=== PATIENT | female | born 1980 | race Caucasian/White ===

== ENCOUNTER 2018-03-29 07:12 | Emergency (ER) | payer OTHER | END 2018-03-29 08:10 | disposition home or self-care (01) | LOC: FTE 07:12 | DX: J03.90 Acute tonsillitis, unspecified (principal); J40 Bronchitis, not specified as acute or chronic; E10.9 Type 1 diabetes mellitus without complications | CPT/HCPCS: 99283 ==

== ENCOUNTER 2018-04-18 17:04 | Emergency (ER) | payer OTHER, MEDICAID ==
[2018-04-18] MEDS: morphine 4 MG/ML VIAL IV ×2 (18:00→18:06)
[2018-04-18] MEDS: METOCLOPRAMIDE 10 MG INJ IV (18:00)
[2018-04-18] MEDS: SOD CHLORIDE 0.9% 1,000 ML IV (18:00)
[2018-04-18 18:07] LABS: ADD MAN DIFF? NO
[2018-04-18 18:10] LABS: WHITE BLOOD COUNT 8.5 10^3/ul (4.8-10.8)
[2018-04-18 18:10] LABS: BASOPHILS % 0.5 % (0.0-2.0); EOSINOPHILS % 0.4 % (0.0-7.0); HEMATOCRIT 38.3 % (37.0-47.0); HEMOGLOBIN 12.6 g/dl (12.0-16.0); LYMPHOCYTES # 2.7 10^3/ul (0.8-2.9); LYMPHOCYTES % 31.3 % (15.0-51.0); MEAN CORPUSCULAR HEMOGLOBIN 27.3 pg (29.0-33.0); MEAN CORPUSCULAR HGB CONC 32.9 g/dl (32.0-37.0); MEAN CORPUSCULAR VOLUME 82.9 fl (82.0-101.0); MEAN PLATELET VOLUME 11.3 fl (7.4-10.4); MONOCYTE # 0.6 10^3/ul (0.3-0.9); MONOCYTES % 6.5 % (0.0-11.0); NEUTROPHIL # 5.2 10^3/ul (1.6-7.5); NEUTROPHILS % 60.8 % (39.0-77.0); PLATELET COUNT 180 10^3/UL (140-415); RED BLOOD COUNT 4.62 10^6/ul (4.20-5.40); RED CELL DISTRIBUTION WIDTH 13.4 % (11.5-14.5)
[2018-04-18 18:27] LABS: ALANINE AMINOTRANSFERASE 15 IU/L (13-69); ALBUMIN 4.4 g/dl (3.3-4.9); ALBUMIN/GLOBULIN RATIO 1.46; ALKALINE PHOSPHATASE 93 IU/L (42-121); ANION GAP 11 (5-13); ASPARTATE AMINO TRANSFERASE 28 IU/L (15-46); BILIRUBIN,INDIRECT 0.2 mg/dl (0-1.1); BILIRUBIN,TOTAL 0.2 mg/dl (0.2-1.3); BLOOD UREA NITROGEN 20 mg/dl (7-20); CALCIUM 9.5 mg/dl (8.4-10.2); CARBON DIOXIDE 30 mmol/L (21-31); CHLORIDE 98 mmol/L (97-110); CREATININE 0.32 mg/dl (0.44-1.00); Estimated GFR > 60 mL/min (>60); GLUCOSE 184 mg/dl (70-220); POTASSIUM 4.5 mmol/L (3.5-5.1); SODIUM 139 mmol/L (135-144); TOTAL PROTEIN 7.4 g/dl (6.1-8.1)
[2018-04-18 18:29] LABS: PROTIME 12.2 Sec (11.9-14.9)
[2018-04-18 18:30] LABS: PARTIAL THROMBOPLASTIN TIME 26.3 Sec (23.0-35.0)
[2018-04-18] MEDS: DIPHENHYDRAMINE 50 MG INJ IV (18:36)
== END 2018-04-18 19:27 | disposition home or self-care (01) ==
LOC: FTE 17:04
DX: R51 Headache (principal); E11.9 Type 2 diabetes mellitus without complications; Z79.4 Long term (current) use of insulin
CPT/HCPCS: 36415; 70450; 80053; 85025; 85610; 85730; 96361; 96374; 96375; 99285-25

== ENCOUNTER 2018-04-23 03:20 | Emergency (ER) | payer OTHER ==
[2018-04-23 04:11] LABS: URINE BLOOD (Dip) POC Trace-intact (NEGATIVE); URINE KETONES (Dip) POC Negative (NEGATIVE); URINE LEUKOCYTE EST (Dip) POC Negative (NEGATIVE); URINE NITRITE (Dip) POC Positive (NEGATIVE); URINE TOTAL PROTEIN POC Negative (NEGATIVE)
[2018-04-23] MEDS: SOD CHLORIDE 0.9% 1,000 ML IV (04:26)
[2018-04-23] MEDS: KETOROLAC 30 MG INJ IV (04:34)
[2018-04-23] MEDS: CIPROFLOXACIN 500 MG TAB PO (04:39)
[2018-04-23] MEDS: ALPRAZOLAM 0.25 MG TAB PO (04:39)
[2018-04-23] MEDS: HYDROCODONE/APAP (10/325) TAB PO (05:23)
[2018-04-23] MEDS: ACETAMINOPHEN 325 MG TAB PO (05:39)
[2018-04-23] MEDS: IBUPROFEN 600 MG TAB PO (05:40)
[2018-04-23] MEDS: ONDANSETRON (ODT) 4 MG TAB ODT (07:06)
[2018-04-23] MEDS: LORAZEPAM 1 MG TAB PO (09:15)
== END 2018-04-23 09:37 | disposition home or self-care (01) ==
LOC: E/R 03:20
DX: N39.0 Urinary tract infection, site not specified (principal); R40.2142 Coma scale, eyes open, spontaneous, at arrival to emergency department; R40.2362 Coma scale, best motor response, obeys commands, at arrival to emergency department; R40.2252 Coma scale, best verbal response, oriented, at arrival to emergency department; E11.9 Type 2 diabetes mellitus without complications; F41.9 Anxiety disorder, unspecified; R10.9 Unspecified abdominal pain
CPT/HCPCS: 81003; 81025; 82962; 87086; 96361; 96374; 99284-25

== ENCOUNTER 2018-04-25 06:44 | Inpatient (IN) | payer OTHER ==
[2018-04-25 07:30] LABS: ADD MAN DIFF? NO
[2018-04-25] MEDS: ACETAMINOPHEN 325 MG TAB PO ×2 (07:30→17:00)
[2018-04-25] MEDS: SODIUM CHLORIDE 0.9% 1L BAG IV* (07:31)
[2018-04-25 07:33] LABS: WHITE BLOOD COUNT 6.2 10^3/ul (4.8-10.8)
[2018-04-25 07:33] LABS: BASOPHILS % 0.3 % (0.0-2.0); HEMATOCRIT 40.6 % (37.0-47.0); HEMOGLOBIN 13.6 g/dl (12.0-16.0); LYMPHOCYTES # 1.1 10^3/ul (0.8-2.9); LYMPHOCYTES % 16.9 % (15.0-51.0); MEAN CORPUSCULAR HEMOGLOBIN 27.3 pg (29.0-33.0); MEAN CORPUSCULAR HGB CONC 33.5 g/dl (32.0-37.0); MEAN CORPUSCULAR VOLUME 81.4 fl (82.0-101.0); MEAN PLATELET VOLUME 10.7 fl (7.4-10.4); MONOCYTE # 0.3 10^3/ul (0.3-0.9); MONOCYTES % 4.5 % (0.0-11.0); NEUTROPHIL # 4.8 10^3/ul (1.6-7.5); PLATELET COUNT 151 10^3/UL (140-415); RED BLOOD COUNT 4.99 10^6/ul (4.20-5.40)
[2018-04-25 07:35] LABS: ADD UMIC YES; UR ASCORBIC ACID NEGATIVE (NEGATIVE); UR BACTERIA MODERATE /HPF (NONE SEEN); UR BILIRUBIN (Dip) NEGATIVE (NEGATIVE); UR BLOOD (Dip) 3+ mg/dL (NEGATIVE); UR CLARITY CLOUDY (CLEAR); UR COLOR YELLOW (YELLOW); UR GLUCOSE (Dip) 3+ mg/dL (NEGATIVE); UR KETONES (Dip) 2+ mg/dL (NEGATIVE); UR LEUKOCYTE ESTERASE (Dip) 3+ Leu/ul (NEGATIVE); UR MUCUS FEW /HPF (NONE SEEN); UR NITRITE (Dip) NEGATIVE (NEGATIVE); UR RBC 85 /HPF (0-5); UR SPECIFIC GRAVITY (Dip) 1.033 (1.003-1.030); UR SQUAMOUS EPITHELIAL CELL FEW /HPF (FEW); UR TOTAL PROTEIN (Dip) 1+ mg/dl (NEGATIVE); UR UROBILINOGEN (Dip) NEGATIVE (NEGATIVE); UR WBC > 182 /HPF (0-5)
[2018-04-25] MEDS: KETOROLAC 30 MG INJ IV (07:36)
[2018-04-25] MEDS: AZTREONAM 1 GM/NS (PMX) 50 ML IVPB (07:49)
[2018-04-25 07:52] LABS: INR 0.99; PROTIME 13.2 Sec (11.9-14.9)
[2018-04-25 07:53] LABS: PARTIAL THROMBOPLASTIN TIME 30.5 Sec (23.0-35.0)
[2018-04-25 08:03] LABS: TROPONIN-I < 0.012 ng/ml (0.000-0.120)
[2018-04-25] MEDS: ONDANSETRON 4 MG INJ IV (08:04)
[2018-04-25] MEDS: HYDROmorphONE 2 MG/ML SYG IV (08:04)
[2018-04-25] MEDS: VANCOMYCIN 1 GM (PMX) 250 ML IVPB (08:32)
[2018-04-25 08:35] LABS: ANION GAP 14 (5-13); BLOOD UREA NITROGEN 9 mg/dl (7-20); CALCIUM 9.1 mg/dl (8.4-10.2); CARBON DIOXIDE 24 mmol/L (21-31); CHLORIDE 101 mmol/L (97-110); CREATININE 0.36 mg/dl (0.44-1.00); Estimated GFR > 60 mL/min (>60); GLUCOSE 317 mg/dl (70-220); POTASSIUM 3.9 mmol/L (3.5-5.1); SODIUM 139 mmol/L (135-144)
[2018-04-25] MEDS ORDERED: ONDANSETRON 4 MG INJ IV (09:30)
[2018-04-25] MEDS ORDERED: GLUCOSE GEL 15 GRAM TUBE PO ×4 (09:30→11:00)
[2018-04-25] MEDS ORDERED: ACETAMINOPHEN 325 MG TAB PO (09:30)
[2018-04-25] MEDS ORDERED: GLUCAGON 1 MG INJ IM ×2 (09:30→11:00)
[2018-04-25] MEDS ORDERED: DEXTROSE 50% 50 ML SYRINGE IV ×4 (09:30→11:00)
[2018-04-25] MEDS ORDERED: GLUCOSE GEL 15 GRAM TUBE BUCCAL ×2 (09:30→11:00)
[2018-04-25] MEDS ORDERED: NACL 0.9% 3 ML SYG IV (10:30)
[2018-04-25] MEDS ORDERED: morphine 2 MG INJ IV (10:30)
[2018-04-25] MEDS: SOD CHLORIDE 0.9% 1,000 ML IV ×2 (11:32→18:29)
[2018-04-25] MEDS: SOD CHLORIDE 0.9% 500 ML IV (11:36)
[2018-04-25] MEDS: ONDANSETRON 4 MG TAB PO ×2 (11:41→17:56)
[2018-04-25 11:46] LABS: LACTIC ACID 0.8 mmol/L (0.5-2.0)
[2018-04-25 12:21] LABS: HEMOGLOBIN A1C 11.9 % (0-5.9)
[2018-04-25] MEDS: INSULIN ASPART [NOVOLOG] 3 ML PEN SC ×5 (12:39→20:19)
[2018-04-25] MEDS: MEROPENEM 1 GM/50ML(PMX) 50 ML IVPB ×2 (12:39→21:35)
[2018-04-25] MEDS: INSULIN GLARGINE [LANTus] (100 UNITS/ML) SYG SC (12:43)
[2018-04-25] MEDS: LORAZEPAM 2 MG INJ IV (13:13)
[2018-04-25] MEDS: HYDROCODONE/APAP (5/325) TAB PO (21:37)
[2018-04-26] MEDS: SOD CHLORIDE 0.9% 1,000 ML IV ×4 (00:06→23:05)
[2018-04-26] MEDS: ONDANSETRON 4 MG TAB PO ×2 (00:06→10:05)
[2018-04-26] MEDS: LORAZEPAM 2 MG INJ IV (00:07)
[2018-04-26] MEDS: ACCU-CHEK XX (02:00)
[2018-04-26] MEDS: MEROPENEM 1 GM/50ML(PMX) 50 ML IVPB ×3 (06:01→21:58)
[2018-04-26 06:47] LABS: ADD MAN DIFF? NO
[2018-04-26 06:52] LABS: WHITE BLOOD COUNT 5.7 10^3/ul (4.8-10.8)
[2018-04-26 06:52] LABS: BASOPHILS % 0.2 % (0.0-2.0); HEMATOCRIT 33.7 % (37.0-47.0); HEMOGLOBIN 11.2 g/dl (12.0-16.0); LYMPHOCYTES # 1.1 10^3/ul (0.8-2.9); LYMPHOCYTES % 19.7 % (15.0-51.0); MEAN CORPUSCULAR HEMOGLOBIN 26.9 pg (29.0-33.0); MEAN CORPUSCULAR HGB CONC 33.2 g/dl (32.0-37.0); MEAN CORPUSCULAR VOLUME 80.8 fl (82.0-101.0); MONOCYTE # 0.5 10^3/ul (0.3-0.9); MONOCYTES % 7.9 % (0.0-11.0); NEUTROPHIL # 4.1 10^3/ul (1.6-7.5); NEUTROPHILS % 71.9 % (39.0-77.0); PLATELET COUNT 127 10^3/UL (140-415); RED BLOOD COUNT 4.17 10^6/ul (4.20-5.40); RED CELL DISTRIBUTION WIDTH 13.1 % (11.5-14.5)
[2018-04-26 07:11] LABS: ALANINE AMINOTRANSFERASE 268 IU/L (13-69); ALBUMIN 2.8 g/dl (3.3-4.9); ALBUMIN/GLOBULIN RATIO 1.03; ALKALINE PHOSPHATASE 251 IU/L (42-121); ANION GAP 7 (5-13); ASPARTATE AMINO TRANSFERASE 68 IU/L (15-46); BILIRUBIN,INDIRECT 0.2 mg/dl (0-1.1); BILIRUBIN,TOTAL 0.2 mg/dl (0.2-1.3); BLOOD UREA NITROGEN 4 mg/dl (7-20); CALCIUM 7.9 mg/dl (8.4-10.2); CARBON DIOXIDE 26 mmol/L (21-31); CHLORIDE 103 mmol/L (97-110); CREATININE 0.35 mg/dl (0.44-1.00); Estimated GFR > 60 mL/min (>60); GLUCOSE 151 mg/dl (70-220); MAGNESIUM 1.6 mg/dl (1.7-2.5); PHOSPHORUS 2.3 mg/dl (2.5-4.9); POTASSIUM 3.1 mmol/L (3.5-5.1); SODIUM 136 mmol/L (135-144); TOTAL PROTEIN 5.5 g/dl (6.1-8.1)
[2018-04-26] MEDS: INSULIN ASPART [NOVOLOG] 3 ML PEN SC ×7 (08:00→20:47)
[2018-04-26] MEDS: INSULIN GLARGINE [LANTus] (100 UNITS/ML) SYG SC (08:20)
[2018-04-26] MEDS: HYDROCODONE/APAP (5/325) TAB PO ×2 (10:06→20:59)
[2018-04-26 12:52] LABS: HAAIG REFLEX REFLEX FILED
[2018-04-26] MEDS: MAGNESIUM SULFATE 2 GM/50 ML 50 ML IVPB (13:05)
[2018-04-26] MEDS: IBUPROFEN 400 MG TAB PO ×3 (13:22→23:06)
[2018-04-26 13:30] LABS: HEPATITIS B SURFACE ANTIGEN NEGATIVE (NEGATIVE)
[2018-04-26 13:31] LABS: LIPASE < 10 U/L (23-300)
[2018-04-26] MEDS: SUMATRIPTAN 25 MG TAB PO (13:39)
[2018-04-26 13:48] LABS: HEPATITIS B CORE ANTIBODY NEGATIVE (NEGATIVE); HEPATITIS C VIRAL ANTIBODY NEGATIVE (NEGATIVE)
[2018-04-26] MEDS: POTASSIUM PHOSPHATE 15 MM in SOD CHLORIDE 0.9% 250 ML IVPB (15:14)
[2018-04-27] MEDS: ACCU-CHEK XX (02:00)
[2018-04-27] MEDS: IBUPROFEN 400 MG TAB PO ×3 (05:48→18:04)
[2018-04-27] MEDS: MEROPENEM 1 GM/50ML(PMX) 50 ML IVPB ×3 (05:48→21:35)
[2018-04-27 06:03] LABS: ADD MAN DIFF? NO
[2018-04-27 06:23] LABS: BASOPHILS % 0.4 % (0.0-2.0); EOSINOPHILS % 0.4 % (0.0-7.0); HEMATOCRIT 31.5 % (37.0-47.0); HEMOGLOBIN 10.5 g/dl (12.0-16.0); LYMPHOCYTES # 1.8 10^3/ul (0.8-2.9); LYMPHOCYTES % 36.7 % (15.0-51.0); MEAN CORPUSCULAR HEMOGLOBIN 27.1 pg (29.0-33.0); MEAN CORPUSCULAR HGB CONC 33.3 g/dl (32.0-37.0); MEAN CORPUSCULAR VOLUME 81.4 fl (82.0-101.0); MEAN PLATELET VOLUME 10.8 fl (7.4-10.4); MONOCYTE # 0.5 10^3/ul (0.3-0.9); MONOCYTES % 10.4 % (0.0-11.0); NEUTROPHIL # 2.6 10^3/ul (1.6-7.5); NEUTROPHILS % 51.7 % (39.0-77.0); PLATELET COUNT 137 10^3/UL (140-415); RED BLOOD COUNT 3.87 10^6/ul (4.20-5.40); RED CELL DISTRIBUTION WIDTH 13.2 % (11.5-14.5)
[2018-04-27 06:45] LABS: ALANINE AMINOTRANSFERASE 196 IU/L (13-69); ALBUMIN 2.4 g/dl (3.3-4.9); ALKALINE PHOSPHATASE 248 IU/L (42-121); ASPARTATE AMINO TRANSFERASE 52 IU/L (15-46); BILIRUBIN,INDIRECT 0.2 mg/dl (0-1.1); BILIRUBIN,TOTAL 0.2 mg/dl (0.2-1.3)
[2018-04-27 06:50] LABS: ANION GAP 6 (5-13); BLOOD UREA NITROGEN 5 mg/dl (7-20); CARBON DIOXIDE 28 mmol/L (21-31); CHLORIDE 105 mmol/L (97-110); CREATININE 0.25 mg/dl (0.44-1.00); Estimated GFR > 60 mL/min (>60); GLUCOSE 100 mg/dl (70-220); MAGNESIUM 2.1 mg/dl (1.7-2.5); PHOSPHORUS 2.6 mg/dl (2.5-4.9); POTASSIUM 3.2 mmol/L (3.5-5.1); SODIUM 139 mmol/L (135-144)
[2018-04-27] MEDS: INSULIN ASPART [NOVOLOG] 3 ML PEN SC ×7 (08:00→21:00)
[2018-04-27] MEDS: INSULIN GLARGINE [LANTus] (100 UNITS/ML) SYG SC (08:20)
[2018-04-27] MEDS: INSULIN LISPRO 100 UNIT/ML VIAL SC (08:22)
[2018-04-27] MEDS: SOD CHLORIDE 0.9% 1,000 ML IV ×2 (09:14→18:06)
[2018-04-27] MEDS: POTASSIUM CHLORIDE (SR) 20 MEQ TAB PO (10:42)
[2018-04-27] MEDS: HYDROCODONE/APAP (5/325) TAB PO ×2 (10:44→20:03)
[2018-04-27] MEDS: TOPIRAMATE 25 MG TAB PO (18:05)
[2018-04-27] MEDS: LORAZEPAM 2 MG INJ IV (20:46)
[2018-04-28] MEDS: IBUPROFEN 400 MG TAB PO ×6 (00:27→23:44)
[2018-04-28] MEDS: ACCU-CHEK XX (02:00)
[2018-04-28] MEDS: SOD CHLORIDE 0.9% 1,000 ML IV ×3 (03:09→21:32)
[2018-04-28] MEDS ORDERED: POLYETHYLENE GLYCOL 3350 119 GM POWDER PO (04:30)
[2018-04-28] MEDS: MEROPENEM 1 GM/50ML(PMX) 50 ML IVPB ×3 (05:53→21:32)
[2018-04-28 06:31] LABS: ADD MAN DIFF? NO
[2018-04-28 06:34] LABS: WHITE BLOOD COUNT 5.2 10^3/ul (4.8-10.8)
[2018-04-28 06:34] LABS: BASOPHILS % 0.4 % (0.0-2.0); EOSINOPHILS % 0.6 % (0.0-7.0); HEMATOCRIT 29.8 % (37.0-47.0); HEMOGLOBIN 9.9 g/dl (12.0-16.0); LYMPHOCYTES # 2.3 10^3/ul (0.8-2.9); LYMPHOCYTES % 43.6 % (15.0-51.0); MEAN CORPUSCULAR HEMOGLOBIN 27.1 pg (29.0-33.0); MEAN CORPUSCULAR HGB CONC 33.2 g/dl (32.0-37.0); MEAN CORPUSCULAR VOLUME 81.6 fl (82.0-101.0); MEAN PLATELET VOLUME 10.5 fl (7.4-10.4); MONOCYTE # 0.4 10^3/ul (0.3-0.9); MONOCYTES % 8.4 % (0.0-11.0); NEUTROPHIL # 2.4 10^3/ul (1.6-7.5); NEUTROPHILS % 46.8 % (39.0-77.0); PLATELET COUNT 170 10^3/UL (140-415); RED BLOOD COUNT 3.65 10^6/ul (4.20-5.40); RED CELL DISTRIBUTION WIDTH 13.3 % (11.5-14.5)
[2018-04-28 07:31] LABS: ANION GAP 6 (5-13); BLOOD UREA NITROGEN 3 mg/dl (7-20); CALCIUM 8.1 mg/dl (8.4-10.2); CARBON DIOXIDE 28 mmol/L (21-31); CHLORIDE 108 mmol/L (97-110); CREATININE 0.28 mg/dl (0.44-1.00); Estimated GFR > 60 mL/min (>60); GLUCOSE 94 mg/dl (70-220); POTASSIUM 3.7 mmol/L (3.5-5.1); SODIUM 142 mmol/L (135-144)
[2018-04-28] MEDS: INSULIN ASPART [NOVOLOG] 3 ML PEN SC ×5 (08:00→21:00)
[2018-04-28] MEDS: INSULIN GLARGINE [LANTus] (100 UNITS/ML) SYG SC (08:28)
[2018-04-28] MEDS: DOCUSATE SODIUM 100 MG CAP PO ×2 (08:31→21:32)
[2018-04-28] MEDS: HYDROCODONE/APAP (5/325) TAB PO ×2 (08:32→22:21)
[2018-04-28] MEDS ORDERED: MAGNESIUM HYDROXIDE 30ML CUP PO (11:30)
[2018-04-28] MEDS: NA PHOSPHATE/BIPHOS 133 ML ENEMA PR (12:43)
[2018-04-28] MEDS: LORAZEPAM 2 MG INJ IV (12:43)
[2018-04-28] MEDS: LIDOCAINE 1% (MPF) 5 ML VIAL SC (13:35)
[2018-04-28 16:56] LABS: ADD UMIC NO; UR ASCORBIC ACID NEGATIVE (NEGATIVE); UR BILIRUBIN (Dip) NEGATIVE (NEGATIVE); UR BLOOD (Dip) NEGATIVE (NEGATIVE); UR CLARITY CLEAR (CLEAR); UR COLOR STRAW (YELLOW); UR GLUCOSE (Dip) NEGATIVE (NEGATIVE); UR KETONES (Dip) TRACE mg/dL (NEGATIVE); UR LEUKOCYTE ESTERASE (Dip) NEGATIVE Leu/ul (NEGATIVE); UR NITRITE (Dip) NEGATIVE (NEGATIVE); UR SPECIFIC GRAVITY (Dip) 1.006 (1.003-1.030); UR TOTAL PROTEIN (Dip) NEGATIVE (NEGATIVE); UR UROBILINOGEN (Dip) NEGATIVE (NEGATIVE)
[2018-04-28] MEDS: metFORMIN 500 MG TAB PO (19:09)
[2018-04-28] MEDS: TOPIRAMATE 25 MG TAB PO (21:32)
[2018-04-29] MEDS: LORAZEPAM 2 MG INJ IV (00:53)
[2018-04-29] MEDS: ACCU-CHEK XX (01:06)
[2018-04-29] MEDS: SOD CHLORIDE 0.9% 1,000 ML IV ×2 (02:22→09:12)
[2018-04-29] MEDS: MEROPENEM 1 GM/50ML(PMX) 50 ML IVPB ×2 (06:28→15:07)
[2018-04-29] MEDS: IBUPROFEN 400 MG TAB PO ×2 (06:29→12:58)
[2018-04-29] MEDS: INSULIN ASPART [NOVOLOG] 3 ML PEN SC ×2 (09:09→12:59)
[2018-04-29] MEDS: metFORMIN 500 MG TAB PO (09:12)
[2018-04-29] MEDS: DOCUSATE SODIUM 100 MG CAP PO (09:13)
[2018-04-29] MEDS ORDERED: NA PHOSPHATE/BIPHOS 133 ML ENEMA PR (11:30)
[2018-04-29] MEDS: MAGNESIUM HYDROXIDE 30ML CUP PO (11:49)
== END 2018-04-29 17:15 | disposition home health service (06) | DRG 872 ==
LOC: E/R 06:44 → PP2 09:10
PROVIDERS: Family Medicine
PROC: 02HV33Z Insertion of Infusion Device into Superior Vena Cava, Percutaneous Approach (ICD-10-PCS; principal; 2018-04-28)
DX: A41.51 Sepsis due to Escherichia coli [E. coli] (principal); N12 Tubulo-interstitial nephritis, not specified as acute or chronic; E11.65 Type 2 diabetes mellitus with hyperglycemia; F41.9 Anxiety disorder, unspecified; R79.9 Abnormal finding of blood chemistry, unspecified; K59.00 Constipation, unspecified; G43.909 Migraine, unspecified, not intractable, without status migrainosus
CPT/HCPCS: 36415; 36569; 70450; 71045; 74176; 76937; 80048; 80053; 80076; 81001; 81003; 82962; 83036; 83605; 83690; 83735; 84100; 84484; 85025; 85610; 85730; 86704; 86709; 86803; 87040; 87086; 87340; 93005; 96365; 96375; 99291-25

== ENCOUNTER → 2018-05-09 | Outpatient (CLI) | payer OTHER | END | disposition home or self-care (01) | LOC: DIB 15:32 | DX: Z02.9 Encounter for administrative examinations, unspecified (principal) ==

== ENCOUNTER 2018-06-14 21:07 | Emergency (ER) | payer OTHER ==
[2018-06-14] MEDS: IBUPROFEN 800 MG TAB PO (23:12)
== END 2018-06-14 23:15 | disposition home or self-care (01) ==
LOC: FTE 21:07
DX: H10.023 Other mucopurulent conjunctivitis, bilateral (principal); J32.9 Chronic sinusitis, unspecified; H66.93 Otitis media, unspecified, bilateral; E11.9 Type 2 diabetes mellitus without complications; Z79.84 Long term (current) use of oral hypoglycemic drugs; Z85.841 Personal history of malignant neoplasm of brain
CPT/HCPCS: 99283; Z7502

== ENCOUNTER 2018-08-12 19:26 | Emergency (ER) | payer OTHER ==
[2018-08-12 21:12] LABS: URINE BLOOD (Dip) POC Negative (NEGATIVE); URINE KETONES (Dip) POC Negative (NEGATIVE); URINE LEUKOCYTE EST (Dip) POC Negative (NEGATIVE); URINE NITRITE (Dip) POC Negative (NEGATIVE); URINE TOTAL PROTEIN POC Negative (NEGATIVE)
[2018-08-12] MEDS: KETOROLAC 30 MG INJ IM (21:14)
[2018-08-12] MEDS: ONDANSETRON (ODT) 4 MG TAB ODT (21:14)
[2018-08-12] MEDS: SOD CHLORIDE 0.9% 700 ML IV (21:14)
[2018-08-12 21:21] LABS: ADD MAN DIFF? NO
[2018-08-12 21:23] LABS: BASOPHILS % 0.4 % (0.0-2.0); EOSINOPHILS % 0.2 % (0.0-7.0); HEMATOCRIT 40.4 % (37.0-47.0); HEMOGLOBIN 13.6 g/dl (12.0-16.0); LYMPHOCYTES # 3.5 10^3/ul (0.8-2.9); LYMPHOCYTES % 37.4 % (15.0-51.0); MEAN CORPUSCULAR HEMOGLOBIN 26.7 pg (29.0-33.0); MEAN CORPUSCULAR HGB CONC 33.7 g/dl (32.0-37.0); MEAN CORPUSCULAR VOLUME 79.4 fl (82.0-101.0); MEAN PLATELET VOLUME 11.4 fl (7.4-10.4); MONOCYTE # 0.6 10^3/ul (0.3-0.9); MONOCYTES % 5.9 % (0.0-11.0); NEUTROPHIL # 5.2 10^3/ul (1.6-7.5); NEUTROPHILS % 55.8 % (39.0-77.0); PLATELET COUNT 185 10^3/UL (140-415); RED BLOOD COUNT 5.09 10^6/ul (4.20-5.40); RED CELL DISTRIBUTION WIDTH 12.8 % (11.5-14.5)
[2018-08-12 21:23] LABS: WHITE BLOOD COUNT 9.3 10^3/ul (4.8-10.8)
[2018-08-12 21:28] LABS: MODE ROOM AIR; MetHgb Venous 0.2 %; Sample Type Blood venous; Site VENOUS LINE; Venous COHb 0.5 %; Venous Fraction OxyHgb 65.7 %; Venous Oxygen Sat 66.2 mmHG (55.0-75.0); Venous Total Hemglobin 13.3 g/dl
[2018-08-12 21:32] LABS: ADD UMIC NO; UR ASCORBIC ACID NEGATIVE (NEGATIVE); UR BILIRUBIN (Dip) NEGATIVE (NEGATIVE); UR BLOOD (Dip) NEGATIVE (NEGATIVE); UR CLARITY CLEAR (CLEAR); UR COLOR STRAW (YELLOW); UR GLUCOSE (Dip) 3+ mg/dL (NEGATIVE); UR KETONES (Dip) NEGATIVE (NEGATIVE); UR LEUKOCYTE ESTERASE (Dip) NEGATIVE Leu/ul (NEGATIVE); UR NITRITE (Dip) NEGATIVE (NEGATIVE); UR SPECIFIC GRAVITY (Dip) 1.025 (1.003-1.030); UR TOTAL PROTEIN (Dip) NEGATIVE (NEGATIVE); UR UROBILINOGEN (Dip) NEGATIVE (NEGATIVE)
[2018-08-12 21:40] LABS: ANION GAP 10 (5-13); BLOOD UREA NITROGEN 19 mg/dl (7-20); CALCIUM 9.6 mg/dl (8.4-10.2); CARBON DIOXIDE 29 mmol/L (21-31); CHLORIDE 98 mmol/L (97-110); CREATININE 0.41 mg/dl (0.44-1.00); Estimated GFR > 60 mL/min (>60); PHOSPHORUS 3.8 mg/dl (2.5-4.9); POTASSIUM 3.7 mmol/L (3.5-5.1); SODIUM 137 mmol/L (135-144)
[2018-08-12 21:42] LABS: GLUCOSE 464 mg/dl (70-220)
== END 2018-08-12 22:15 | disposition home or self-care (01) ==
LOC: E/R 19:26
DX: E11.65 Type 2 diabetes mellitus with hyperglycemia (principal); G43.909 Migraine, unspecified, not intractable, without status migrainosus
CPT/HCPCS: 36415; 80048; 81003; 81025; 82803; 82962; 83735; 84100; 85025; 96360; 96372; 99284-25

== ENCOUNTER 2018-09-05 17:13 | Emergency (ER) | payer OTHER ==
[2018-09-05] MEDS: ACETAMINOPHEN 325 MG TAB PO (18:10)
[2018-09-05] MEDS: DIPHTH/TET/ACEL PERTUSS (ADULT) 0.5 ML VIAL IM* (18:11)
== END 2018-09-05 19:31 | disposition home or self-care (01) ==
LOC: FTE 17:13
DX: S61.211A Laceration without foreign body of left index finger without damage to nail, initial encounter (principal); R21 Rash and other nonspecific skin eruption; E11.9 Type 2 diabetes mellitus without complications; W26.8XXA Contact with other sharp object(s), not elsewhere classified, initial encounter; Y92.9 Unspecified place or not applicable; Z23 Encounter for immunization; Z79.84 Long term (current) use of oral hypoglycemic drugs
CPT/HCPCS: 12001; 90471; 90715; 99283-25

== ENCOUNTER 2018-09-07 17:59 | Emergency (ER) | payer OTHER ==
[2018-09-07 19:02] LABS: ADD UMIC YES; UR ASCORBIC ACID NEGATIVE (NEGATIVE); UR BACTERIA FEW /HPF (NONE SEEN); UR BILIRUBIN (Dip) NEGATIVE (NEGATIVE); UR BLOOD (Dip) NEGATIVE (NEGATIVE); UR CLARITY SLIGHTLY CLOUDY (CLEAR); UR COLOR YELLOW (YELLOW); UR GLUCOSE (Dip) 3+ mg/dL (NEGATIVE); UR KETONES (Dip) NEGATIVE (NEGATIVE); UR LEUKOCYTE ESTERASE (Dip) 2+ Leu/ul (NEGATIVE); UR MUCUS FEW /HPF (NONE SEEN); UR NITRITE (Dip) NEGATIVE (NEGATIVE); UR RBC 4 /HPF (0-5); UR SPECIFIC GRAVITY (Dip) 1.039 (1.003-1.030); UR SQUAMOUS EPITHELIAL CELL MODERATE /HPF (FEW); UR TOTAL PROTEIN (Dip) NEGATIVE (NEGATIVE); UR UROBILINOGEN (Dip) NEGATIVE (NEGATIVE); UR WBC 3 /HPF (0-5)
== END 2018-09-07 19:27 | disposition home or self-care (01) ==
LOC: FTE 19:27
DX: S61.211D Laceration without foreign body of left index finger without damage to nail, subsequent encounter (principal); R30.0 Dysuria; W26.0XXD Contact with knife, subsequent encounter; Z48.01 Encounter for change or removal of surgical wound dressing
CPT/HCPCS: 81001; 99283

== ENCOUNTER 2018-09-10 19:04 | Emergency (ER) | payer OTHER | END 2018-09-10 22:04 | disposition home or self-care (01) | LOC: FTE 19:04 | DX: Z48.01 Encounter for change or removal of surgical wound dressing (principal); E11.9 Type 2 diabetes mellitus without complications; Z79.84 Long term (current) use of oral hypoglycemic drugs | CPT/HCPCS: 99281; Z7502 ==

== ENCOUNTER → 2018-12-15 | Emergency (ER) | payer OTHER ==
[2018-12-15 16:52] LABS: URINE PH (Dip) POC 5.5 (5.0-8.5)
[2018-12-15 16:52] LABS: URINE BLOOD (Dip) POC Negative (NEGATIVE); URINE KETONES (Dip) POC Negative (NEGATIVE); URINE LEUKOCYTE EST (Dip) POC Negative (NEGATIVE); URINE NITRITE (Dip) POC Negative (NEGATIVE); URINE TOTAL PROTEIN POC Negative (NEGATIVE)
== END | disposition home or self-care (01) ==
LOC: FTE 15:09
DX: R30.0 Dysuria (principal); E11.9 Type 2 diabetes mellitus without complications; Z85.841 Personal history of malignant neoplasm of brain; Z79.84 Long term (current) use of oral hypoglycemic drugs
CPT/HCPCS: 81003; 81025; 87086; 99283

== ENCOUNTER 2019-01-18 00:26 | Emergency (ER) | payer OTHER ==
[2019-01-18] MEDS: ONDANSETRON (ODT) 4 MG TAB ODT (03:55)
[2019-01-18] MEDS: DIPHENHYDRAMINE 50 MG INJ IV (03:55)
[2019-01-18] MEDS: SOD CHLORIDE 0.9% 1,000 ML IV (03:56)
[2019-01-18] MEDS: DIPHTH/TET/ACEL PERTUSS (ADULT) 0.5 ML VIAL IM* (03:56)
[2019-01-18] MEDS: ACETAMINOPHEN 500 MG TAB PO (03:56)
[2019-01-18] MEDS: METOCLOPRAMIDE 10 MG INJ IV (03:56)
[2019-01-18] MEDS ORDERED: DIPHENHYDRAMINE 25 MG CAP PO (04:00)
== END 2019-01-18 05:07 | disposition home or self-care (01) ==
LOC: FTE 00:26
DX: S20.469A Insect bite (nonvenomous) of unspecified back wall of thorax, initial encounter (principal); E10.9 Type 1 diabetes mellitus without complications; L08.9 Local infection of the skin and subcutaneous tissue, unspecified; W57.XXXA Bitten or stung by nonvenomous insect and other nonvenomous arthropods, initial encounter; Y92.9 Unspecified place or not applicable; Z23 Encounter for immunization; Z79.84 Long term (current) use of oral hypoglycemic drugs
CPT/HCPCS: 81025; 82962; 90471; 90715; 96374; 96375; 99284-25